=== PATIENT | female | born 1935 | race Caucasian/White ===

== ENCOUNTER 2016-07-24 09:35 | Outpatient (CLI) | payer MEDICARE, MEDICAID ==
[~2016-07-24 09:35] MED LIST: ACET-73 PO; ACET650T10 PO; ALLA266C2 TP; AMIN887L7 PO; ASCO500T9 PO; ASPI-991 PO; ATOR10TA PO; BISA10SU61 RC; BUSP10TA3 PO; CARV6.25 PO; CLON0.1T PO; CRAN425C PO; DOCU50LI PO; Ergocalciferol PO; FERR-58 PO; INSU100V11; INSU100V7 SQ; ISOS60TA PO; LACT10SO7 PO; MAGN2400 PO; MULT1TAB11 PO; NA P133E RC; NITR0.4T SL; NUTR1PAC14 PO; Nifedipine PO; PANT40TA2 PO; REPA1TAB PO; SENN8.6T6 PO; SITA100T PO; TRAM50TA2 PO; ZINC220C8 PO
== END 2016-07-24 23:59 ==
LOC: WOU 09:35
PROVIDERS: ATTEND Podiatrist Foot & Ankle Surgery
DX: E11.621 Type 2 diabetes mellitus with foot ulcer (principal); L97.512 Non-pressure chronic ulcer of other part of right foot with fat layer exposed; L97.412 Non-pressure chronic ulcer of right heel and midfoot with fat layer exposed; L89.612 Pressure ulcer of right heel, stage 2; L89.892 Pressure ulcer of other site, stage 2; L89.622 Pressure ulcer of left heel, stage 2; Z79.4 Long term (current) use of insulin; Z79.84 Long term (current) use of oral hypoglycemic drugs; E11.22 Type 2 diabetes mellitus with diabetic chronic kidney disease; I13.10 Hypertensive heart and chronic kidney disease without heart failure, with stage 1 through stage 4 chronic kidney disease, or unspecified chronic kidney disease; N18.9 Chronic kidney disease, unspecified; E66.9 Obesity, unspecified; Z68.27 Body mass index [BMI] 27.0-27.9, adult; E11.51 Type 2 diabetes mellitus with diabetic peripheral angiopathy without gangrene; Z99.3 Dependence on wheelchair; I25.10 Atherosclerotic heart disease of native coronary artery without angina pectoris
CPT/HCPCS: 11042; 11045; 87070 ×2; 87075 ×2; 87186; A6253; A6402

== ENCOUNTER 2016-08-01 09:37 | Outpatient (CLI) | payer MEDICARE, MEDICAID | END 2016-08-01 23:59 | disposition home or self-care (01) | LOC: WOU 09:37 | PROVIDERS: ATTEND Podiatrist Foot & Ankle Surgery | DX: L89.612 Pressure ulcer of right heel, stage 2 (principal); L89.512 Pressure ulcer of right ankle, stage 2; L89.892 Pressure ulcer of other site, stage 2; E11.621 Type 2 diabetes mellitus with foot ulcer; L97.512 Non-pressure chronic ulcer of other part of right foot with fat layer exposed; E11.42 Type 2 diabetes mellitus with diabetic polyneuropathy; Z88.0 Allergy status to penicillin; E11.69 Type 2 diabetes mellitus with other specified complication; M86.68 Other chronic osteomyelitis, other site; Z74.01 Bed confinement status; N39.0 Urinary tract infection, site not specified; B95.62 Methicillin resistant Staphylococcus aureus infection as the cause of diseases classified elsewhere; Z86.73 Personal history of transient ischemic attack (TIA), and cerebral infarction without residual deficits; I13.10 Hypertensive heart and chronic kidney disease without heart failure, with stage 1 through stage 4 chronic kidney disease, or unspecified chronic kidney disease; N18.9 Chronic kidney disease, unspecified; L89.154 Pressure ulcer of sacral region, stage 4; S51.011A Laceration without foreign body of right elbow, initial encounter; X58.XXXA Exposure to other specified factors, initial encounter; Y92.89 Other specified places as the place of occurrence of the external cause; L89.623 Pressure ulcer of left heel, stage 3; L89.613 Pressure ulcer of right heel, stage 3; Z79.4 Long term (current) use of insulin; Z79.84 Long term (current) use of oral hypoglycemic drugs | CPT/HCPCS: 11042; 11043; 11044; 11045; 11046; 87070; 87075; 87077; 87186 ×2; A6197; A6209; A6402; G0463 ==

== ENCOUNTER 2016-08-10 08:19 | Inpatient (IN) | payer MEDICARE, MEDICAID ==
[~2016-08-10] VITALS: Ht 157.5 cm; Wt 65.8 kg
[2016-08-10] VITALS (12 sets, daily range): BP systolic 101–150; BP diastolic 58–89
[2016-08-10] MEDS ORDERED: ONDANSETRON HCL/PF 4 MG/2 ML VIAL ONE (08:25)
[2016-08-10] MEDS ORDERED: ONDANSETRON HCL/PF 4 MG/2 ML VIAL IV ONE (08:30)
[2016-08-10] MEDS ORDERED: DILTIAZEM HCL 25 MG IV ONE (08:36)
[2016-08-10 08:55] LABS: BASOPHILS % (AUTO) 0.3 % (0.0-2.0); DIFF TOTAL % 100 %; EOSINOPHILS # (AUTO) 0.2 /CMM (0.0-0.7); EOSINOPHILS % (AUTO) 2.6 % (0.0-6.0); HEMATOCRIT 35 % (33-45); LYMPHOCYTES # (AUTO) 2.1 /CMM (0.8-4.8); LYMPHOCYTES % (AUTO) 24.7 % (20.0-44.0); MEAN CORPUSCULAR HEMOGLOBIN 28 PG (26.0-33.0); MEAN CORPUSCULAR HGB CONC 32 g/dl (31.0-36.0); MEAN CORPUSCULAR VOLUME 88 fL (82-100); MONOCYTES # (AUTO) 0.4 /CMM (0.1-1.30); MONOCYTES % (AUTO) 5.3 % (2.0-12.0); NEUTROPHILS # (AUTO) 5.6 /CMM (1.8-8.9); NEUTROPHILS % (AUTO) 67.1 % (43.0-81.0); PLATELET COUNT (AUTO) 264 /CMM (150-450); RED BLOOD CELL COUNT(AUTO) 3.96 MIL/uL (4.0-5.2); WHITE BLOOD COUNT (AUTO) 8.3 K/uL (4.3-11.0)
[2016-08-10] MEDS ORDERED: DIAZEPAM 5 MG/ML 2 ML DISP.SYRIN ONE (08:55)
[2016-08-10] MEDS ORDERED: IV SET PRIMARY PUMP SET 1 EA INFUS.SET MC ONE ×4 (08:56→15:38)
[2016-08-10] MEDS ORDERED: IV NS 0.9% 500 ML IV ONE (08:56)
[2016-08-10] MEDS ORDERED: DIAZEPAM 5 MG/ML 2 ML DISP.SYRIN IV ONE (09:00)
[2016-08-10] MEDS ORDERED: DILTIAZEM HCL 50 MG IV IV ONE (09:00)
[2016-08-10] MEDS ORDERED: IV NS 0.9% 500 ML BAG IV ONE (09:00)
[2016-08-10 09:08] LABS: CALCIUM, SERUM 7.9 mg/dL (8.5-10.1); CREATININE 1.1 mg/dL (0.6-1.3); POTASSIUM 4.7 mmol/L (3.5-5.1)
[2016-08-10 09:09] LABS: INR 1.23 (0.87-1.13); PROTHROMBIN TIME 13.3 SECS (9.5-12.7)
[2016-08-10 09:15] LABS: TROPONIN I 0.1 ng/mL (0.00-0.056)
[2016-08-10] MEDS ORDERED: IV NS 0.9% 250 ML IV ONE (09:16)
[2016-08-10] MEDS ORDERED: CT SWABBABLE VALVE TRANS SET 1 EA INFUS.SET MC ONE (09:16)
[2016-08-10] MEDS ORDERED: IOHEXOL-350 100 ML VIAL IV ONE (09:17)
[2016-08-10] MEDS ORDERED: MAGN400O6 PO (09:23)
[2016-08-10] MEDS ORDERED: METF500T4 PO (09:23)
[2016-08-10] MEDS ORDERED: GENT30OI2 TP (09:23)
[2016-08-10] MEDS ORDERED: ONDA4TAB5 PO (09:23)
[2016-08-10] MEDS ORDERED: AMIN30LI4 PO (09:23)
[2016-08-10] MEDS ORDERED: AMLO5TAB4 PO (09:23)
[2016-08-10] MEDS ORDERED: ATOR10TA PO (09:23)
[2016-08-10] MEDS ORDERED: GLIP5TAB13 PO (09:23)
[2016-08-10] MEDS ORDERED: DOXY-182 PO (09:23)
[2016-08-10] MEDS ORDERED: BLOO-697 IN (09:23)
[2016-08-10] MEDS ORDERED: ASPI81TA2 PO (09:23)
[2016-08-10] MEDS ORDERED: TRAM50TA2 PO (09:23)
[2016-08-10] MEDS ORDERED: DEXT15DR6 EACHEYE (09:23)
[2016-08-10] MEDS ORDERED: GUAI10SY3 PO (09:23)
[2016-08-10] MEDS ORDERED: ASPIRIN 325 MG TABLET ONE (09:25)
[2016-08-10] MEDS ORDERED: ASPIRIN 325 MG TABLET PO ONE (09:30)
[2016-08-10] MEDS ORDERED: HEPARIN INFUSION/D5W 500 ML IV ONE (10:30)
[2016-08-10] MEDS ORDERED: HEPARIN SODIUM, PORCINE 5000 UNITS/1 ML VIAL ONE ×2 (10:40→10:41)
[2016-08-10] MEDS ORDERED: Z GUARD REMEDY 2 OZ OINT TP PRN ×2 (11:00→11:30)
[2016-08-10] MEDS ORDERED: CLONIDINE HCL 0.1 MG TABLET PO PRN (11:00)
[2016-08-10] MEDS ORDERED: NITROGLYCERIN 0.4 MG/TAB BOTTLE SL PRN (11:00)
[2016-08-10] MEDS ORDERED: BISACODYL SUPP (10 MG) 10 MG/SUPP.RECT SUPP.RECT RC PRN (11:00)
[2016-08-10] MEDS ORDERED: MAGNESIUM HYDROXIDE 30 ML UDC PO PRN ×2 (11:00→11:30)
[2016-08-10] MEDS ORDERED: Medication Not On Formulary EA (Ondansetron Hcl (Zofran) 4 MG) PO PRN (11:00)
[2016-08-10] MEDS ORDERED: DEXTROSE 50%-WATER 50 ML DISP.SYRIN IV PRN (11:30)
[2016-08-10] MEDS ORDERED: ZOLPIDEM TARTRATE 5 MG TABLET PO PRN (11:30)
[2016-08-10] MEDS ORDERED: MAG HYDROX/AL HYDROX/SIMETH 30 ML UDC PO PRN (11:30)
[2016-08-10] MEDS ORDERED: *INSULIN REGULAR(HUMULIN R)HUM 100 UNIT/ML VIAL SQ PRN (11:30)
[2016-08-10] MEDS ORDERED: LIDOCAINE 1%-EPI 1:100,000 20 ML VIAL TP ONE (12:00)
[2016-08-10] MEDS ORDERED: BLOOD SUGAR DIAGNOSTIC 1 EACH STRIP IN SCH (12:00)
[2016-08-10] MEDS ORDERED: AMIODARONE 150 MG in IV D5W 100 ML IV ONE ×2 (13:00→15:00)
[2016-08-10] MEDS: BLOOD SUGAR DIAGNOSTIC 1 EACH STRIP VI SCH ×3 (13:04→22:34)
[2016-08-10] MEDS: DAKINS QUARTER STRENGTH (0.125%) 480 ML BOTTLE TOP SCH (13:15)
[2016-08-10] MEDS: POLYVINYL ALCOHOL 15 ML BOTTLE OP SCH ×2 (13:15→17:14)
[2016-08-10] MEDS: PROSOURCE / PROSTAT (PYXIS) 30 ML UDC PO SCH ×2 (13:16→17:25)
[2016-08-10] MEDS: ENOXAPARIN SODIUM 80 MG/0.8 ML DISP.SYRIN SQ SCH (13:18)
[2016-08-10] MEDS: INSULIN REGULAR, HUMAN 100 UNIT/ML 3 ML VIAL SQ PRN ×3 (13:20→22:06)
[2016-08-10 14:29] LABS: THYROID STIMULATING HORMONE 0.077 uIU/mL (0.358-3.74)
[2016-08-10] MEDS ORDERED: AMIODARONE 900 MG in IV D5W 482 ML IV PRN (15:00)
[2016-08-10] MEDS ORDERED: AMIODARONE 900 MG in IV D5W 500 ML IV PRN (15:00)
[2016-08-10] MEDS: TRAMADOL HCL 50 MG TABLET PO PRN ×2 (15:26→20:36)
[2016-08-10] MEDS: Magnesium 1GM/D5W 100ML PREMIX 100 ML IV SCH ×4 (15:52→18:47)
[2016-08-10] MEDS: ONDANSETRON HCL/PF 4 MG/2 ML VIAL IVP PRN (15:52)
[2016-08-10 15:53] LABS: ALBUMIN 2.2 g/dL (3.4-5.0); BILIRUBIN,DIRECT 0.2 mg/dL (0.0-0.2); BILIRUBIN,TOTAL 0.5 mg/dL (0.2-1.0); INDIRECT BILIRUBIN 0.3 mg/dL (0.0-1.1)
[2016-08-10] MEDS: ATORVASTATIN 10 MG TABLET PO SCH (21:16)
[2016-08-10] MEDS: DOCUSATE SODIUM LIQ 100 MG/10 ML UDC PO SCH (21:17)
[2016-08-10] MEDS: INSULIN DETEMIR 100 UNIT/ML CARTRIDGE SQ SCH (21:55)
[2016-08-11] VITALS (28 sets, daily range): BP systolic 72–136; BP diastolic 32–85
[2016-08-11] MEDS ORDERED: IV NS 0.9% 1,000 ML BAG IV PRN (00:30)
[2016-08-11] MEDS ORDERED: IV SET PRIMARY PUMP SET 1 EA INFUS.SET MC ONE ×3 (00:34→13:08)
[2016-08-11] MEDS: ENOXAPARIN SODIUM 80 MG/0.8 ML DISP.SYRIN SQ SCH ×2 (00:47→12:04)
[2016-08-11 05:14] LABS: BASOPHILS % (AUTO) 0.3 % (0.0-2.0); DIFF TOTAL % 100 %; EOSINOPHILS # (AUTO) 0.2 /CMM (0.0-0.7); EOSINOPHILS % (AUTO) 2.1 % (0.0-6.0); HEMATOCRIT 34 % (33-45); LYMPHOCYTES # (AUTO) 3.4 /CMM (0.8-4.8); LYMPHOCYTES % (AUTO) 36.5 % (20.0-44.0); MEAN CORPUSCULAR HEMOGLOBIN 28 PG (26.0-33.0); MEAN CORPUSCULAR HGB CONC 32 g/dl (31.0-36.0); MEAN CORPUSCULAR VOLUME 87 fL (82-100); MONOCYTES # (AUTO) 0.5 /CMM (0.1-1.30); MONOCYTES % (AUTO) 5.3 % (2.0-12.0); NEUTROPHILS # (AUTO) 5.2 /CMM (1.8-8.9); NEUTROPHILS % (AUTO) 55.8 % (43.0-81.0); PLATELET COUNT (AUTO) 292 /CMM (150-450); WHITE BLOOD COUNT (AUTO) 9.3 K/uL (4.3-11.0)
[2016-08-11 05:28] LABS: RETICULOCYTE COUNT 2.1 % (0.6-2.5)
[2016-08-11 05:35] LABS: CREATININE 0.8 mg/dL (0.6-1.3); PHOSPHORUS 3.8 mg/dL (2.5-4.9); POTASSIUM 3.9 mmol/L (3.5-5.1)
[2016-08-11 05:38] LABS: THYROID STIMULATING HORMONE 0.063 uIU/mL (0.358-3.74)
[2016-08-11] MEDS ORDERED: IV D5/ 0.9% NACL 1,000 ML IV PRN (07:30)
[2016-08-11] MEDS ORDERED: FENTANYL PF 100MCG/2ML AMPUL ONE (08:51)
[2016-08-11] MEDS ORDERED: MIDAZOLAM HCL 2 MG/2ML VIAL ONE (08:52)
[2016-08-11] MEDS ORDERED: IOHEXOL 50 ML IV ONE (08:56)
[2016-08-11] MEDS ORDERED: LIDOCAINE 1% INJ 50 ML MDV IJ ONE (08:57)
[2016-08-11] MEDS ORDERED: AMLODIPINE BESYLATE 5 MG TABLET PO SCH (09:00)
[2016-08-11] MEDS ORDERED: CLINDAMYCIN 900 MG/6 ML VIAL ONE (09:07)
[2016-08-11] MEDS: BLOOD SUGAR DIAGNOSTIC 1 EACH STRIP VI SCH (09:29)
[2016-08-11 10:29] LABS: BASOPHILS % (AUTO) 0.4 % (0.0-2.0); DIFF TOTAL % 100 %; EOSINOPHILS % (AUTO) 0.5 % (0.0-6.0); HEMATOCRIT 36 % (33-45); HEMOGLOBIN 11.6 g/dL (11.5-14.8); LYMPHOCYTES # (AUTO) 2.2 /CMM (0.8-4.8); LYMPHOCYTES % (AUTO) 28.3 % (20.0-44.0); MEAN CORPUSCULAR HEMOGLOBIN 28 PG (26.0-33.0); MEAN CORPUSCULAR HGB CONC 32 g/dl (31.0-36.0); MEAN CORPUSCULAR VOLUME 87 fL (82-100); MONOCYTES # (AUTO) 0.3 /CMM (0.1-1.30); MONOCYTES % (AUTO) 4.1 % (2.0-12.0); NEUTROPHILS # (AUTO) 5.3 /CMM (1.8-8.9); NEUTROPHILS % (AUTO) 66.7 % (43.0-81.0); PLATELET COUNT (AUTO) 251 /CMM (150-450); RED BLOOD CELL COUNT(AUTO) 4.14 MIL/uL (4.0-5.2); WHITE BLOOD COUNT (AUTO) 7.9 K/uL (4.3-11.0)
[2016-08-11] MEDS: DEXTROSE 50%-WATER 50 ML DISP.SYRIN IV PRN (10:32)
[2016-08-11] MEDS: DAKINS QUARTER STRENGTH (0.125%) 480 ML BOTTLE TOP SCH (10:33)
[2016-08-11] MEDS: POLYVINYL ALCOHOL 15 ML BOTTLE OP SCH ×3 (10:33→16:11)
[2016-08-11 10:43] LABS: CALCIUM, SERUM 7.8 mg/dL (8.5-10.1); CREATININE 0.8 mg/dL (0.6-1.3); POTASSIUM 4.1 mmol/L (3.5-5.1)
[2016-08-11] MEDS: TRAMADOL HCL 50 MG TABLET PO SCH (11:28)
[2016-08-11] MEDS: ASPIRIN 81 MG TAB.CHEW PO SCH (11:28)
[2016-08-11] MEDS: PROSOURCE / PROSTAT (PYXIS) 30 ML UDC PO SCH ×3 (11:29→16:10)
[2016-08-11] MEDS: ZINC SULFATE 220 MG CAPSULE PO SCH (11:29)
[2016-08-11] MEDS: MULTIVITAMINS W-MINERALS 1 TAB TABLET PO SCH (11:29)
[2016-08-11] MEDS: PANTOPRAZOLE 40 MG TABLET.DR PO SCH (11:29)
[2016-08-11] MEDS: ASCORBIC ACID 500 MG TABLET PO SCH (11:29)
[2016-08-11] MEDS: CARVEDILOL 12.5 MG TABLET PO SCH ×2 (11:31→20:21)
[2016-08-11] MEDS: BLOOD SUGAR DIAGNOSTIC 1 EACH STRIP IN SCH ×3 (11:56→23:41)
[2016-08-11] MEDS: INSULIN REGULAR, HUMAN 100 UNIT/ML 3 ML VIAL SQ PRN ×2 (12:03→23:31)
[2016-08-11] MEDS ORDERED: IV NS 0.9% 500 ML IV ONE (13:30)
[2016-08-11] MEDS: TRAMADOL HCL 50 MG TABLET PO PRN ×2 (17:34→20:18)
[2016-08-11] MEDS: ATORVASTATIN 10 MG TABLET PO SCH (21:38)
[2016-08-11] MEDS: DOCUSATE SODIUM LIQ 100 MG/10 ML UDC PO SCH (21:40)
[2016-08-11] MEDS: INSULIN DETEMIR 100 UNIT/ML CARTRIDGE SQ SCH (23:34)
[2016-08-12] VITALS (22 sets, daily range): BP systolic 89–138; BP diastolic 39–84
[2016-08-12] MEDS: ENOXAPARIN SODIUM 80 MG/0.8 ML DISP.SYRIN SQ SCH ×2 (00:46→12:54)
[2016-08-12 04:53] LABS: BASOPHILS % (AUTO) 0.6 % (0.0-2.0); DIFF TOTAL % 100 %; EOSINOPHILS # (AUTO) 0.2 /CMM (0.0-0.7); EOSINOPHILS % (AUTO) 2.2 % (0.0-6.0); HEMATOCRIT 31 % (33-45); HEMOGLOBIN 10.1 g/dL (11.5-14.8); LYMPHOCYTES # (AUTO) 2.1 /CMM (0.8-4.8); LYMPHOCYTES % (AUTO) 29.5 % (20.0-44.0); MEAN CORPUSCULAR HEMOGLOBIN 28 PG (26.0-33.0); MEAN CORPUSCULAR HGB CONC 32 g/dl (31.0-36.0); MEAN CORPUSCULAR VOLUME 87 fL (82-100); MONOCYTES # (AUTO) 0.4 /CMM (0.1-1.30); MONOCYTES % (AUTO) 6.1 % (2.0-12.0); NEUTROPHILS # (AUTO) 4.5 /CMM (1.8-8.9); NEUTROPHILS % (AUTO) 61.6 % (43.0-81.0); PLATELET COUNT (AUTO) 268 /CMM (150-450); RED BLOOD CELL COUNT(AUTO) 3.59 MIL/uL (4.0-5.2); WHITE BLOOD COUNT (AUTO) 7.3 K/uL (4.3-11.0)
[2016-08-12 05:08] LABS: CREATININE 0.8 mg/dL (0.6-1.3); POTASSIUM 4.9 mmol/L (3.5-5.1)
[2016-08-12] MEDS: DEXTROSE 50%-WATER 50 ML DISP.SYRIN IV PRN (05:24)
[2016-08-12] MEDS: TRAMADOL HCL 50 MG TABLET PO PRN (06:16)
[2016-08-12] MEDS: DAKINS QUARTER STRENGTH (0.125%) 480 ML BOTTLE TOP SCH (06:30)
[2016-08-12] MEDS: BLOOD SUGAR DIAGNOSTIC 1 EACH STRIP IN SCH ×4 (07:29→22:03)
[2016-08-12] MEDS: ASPIRIN 81 MG TAB.CHEW PO SCH (07:54)
[2016-08-12] MEDS: MULTIVITAMINS W-MINERALS 1 TAB TABLET PO SCH (07:54)
[2016-08-12] MEDS: ZINC SULFATE 220 MG CAPSULE PO SCH (07:54)
[2016-08-12] MEDS: ACETAMINOPHEN 325 MG TABLET PO PRN (07:54)
[2016-08-12] MEDS: ASCORBIC ACID 500 MG TABLET PO SCH (07:54)
[2016-08-12] MEDS: POLYVINYL ALCOHOL 15 ML BOTTLE OP SCH ×3 (07:55→17:05)
[2016-08-12] MEDS: PROSOURCE / PROSTAT (PYXIS) 30 ML UDC PO SCH ×3 (07:55→17:21)
[2016-08-12] MEDS: PANTOPRAZOLE 40 MG TABLET.DR PO SCH (07:55)
[2016-08-12] MEDS: CARVEDILOL 12.5 MG TABLET PO SCH ×2 (09:00→22:03)
[2016-08-12] MEDS ORDERED: IV NS 0.9% 1,000 ML IV PRN (10:30)
[2016-08-12] MEDS: CADEXOMER IODINE 40 GM TUBE TP SCH (10:35)
[2016-08-12] MEDS ORDERED: IV SET PRIMARY PUMP SET 1 EA INFUS.SET MC ONE (11:10)
[2016-08-12] MEDS: TRAMADOL HCL 50 MG TABLET PO SCH (11:14)
[2016-08-12] MEDS: INSULIN REGULAR, HUMAN 100 UNIT/ML 3 ML VIAL SQ PRN (11:50)
[2016-08-12] MEDS: SOD FERRIC GLUC 125 MG in IV NS 0.9% 100 ML IV SCH (14:33)
[2016-08-12] MEDS ORDERED: SECONDARY IV SET 1 EA INFUS.SET MC ONE (14:35)
[2016-08-12] MEDS ORDERED: DIGOXIN 0.125 MG TABLET PO SCH (17:30)
[2016-08-12] MEDS ORDERED: CARVEDILOL 12.5 MG TABLET PO SCH (21:00)
[2016-08-12] MEDS ORDERED: DOCUSATE SODIUM LIQ 100 MG/10 ML UDC ONE (21:46)
[2016-08-12] MEDS: ATORVASTATIN 10 MG TABLET PO SCH (21:59)
[2016-08-12] MEDS: INSULIN DETEMIR 100 UNIT/ML CARTRIDGE SQ SCH (22:00)
[2016-08-12] MEDS: DOCUSATE SODIUM LIQ 100 MG/10 ML UDC PO SCH (22:02)
[2016-08-13] VITALS: BP 125/59
[2016-08-13] MEDS: ENOXAPARIN SODIUM 80 MG/0.8 ML DISP.SYRIN SQ SCH ×2 (00:42→14:34)
[2016-08-13 04:00] VITALS: BP_SYST 106; BP_SYST 117; BP_DIAS 49; BP_DIAS 52
[2016-08-13 06:32] LABS: BASOPHILS % (AUTO) 0.4 % (0.0-2.0); DIFF TOTAL % 100 %; EOSINOPHILS # (AUTO) 0.2 /CMM (0.0-0.7); EOSINOPHILS % (AUTO) 2.7 % (0.0-6.0); HEMATOCRIT 33 % (33-45); HEMOGLOBIN 10.8 g/dL (11.5-14.8); LYMPHOCYTES # (AUTO) 2.1 /CMM (0.8-4.8); LYMPHOCYTES % (AUTO) 30.4 % (20.0-44.0); MEAN CORPUSCULAR HEMOGLOBIN 28 PG (26.0-33.0); MEAN CORPUSCULAR HGB CONC 32 g/dl (31.0-36.0); MEAN CORPUSCULAR VOLUME 87 fL (82-100); MONOCYTES # (AUTO) 0.3 /CMM (0.1-1.30); MONOCYTES % (AUTO) 4.5 % (2.0-12.0); NEUTROPHILS # (AUTO) 4.3 /CMM (1.8-8.9); PLATELET COUNT (AUTO) 303 /CMM (150-450); RED BLOOD CELL COUNT(AUTO) 3.83 MIL/uL (4.0-5.2); WHITE BLOOD COUNT (AUTO) 6.9 K/uL (4.3-11.0)
[2016-08-13 06:48] LABS: CALCIUM, SERUM 8.3 mg/dL (8.5-10.1); CREATININE 0.8 mg/dL (0.6-1.3); PHOSPHORUS 3.5 mg/dL (2.5-4.9); POTASSIUM 5.2 mmol/L (3.5-5.1)
[2016-08-13] MEDS: BLOOD SUGAR DIAGNOSTIC 1 EACH STRIP IN SCH ×4 (07:30→21:18)
[2016-08-13 08:00] VITALS: BP 136/82
[2016-08-13] MEDS: MULTIVITAMINS W-MINERALS 1 TAB TABLET PO SCH (09:21)
[2016-08-13] MEDS: TRAMADOL HCL 50 MG TABLET PO SCH (09:21)
[2016-08-13] MEDS: PANTOPRAZOLE 40 MG TABLET.DR PO SCH (09:22)
[2016-08-13] MEDS: ASPIRIN 81 MG TAB.CHEW PO SCH (09:22)
[2016-08-13] MEDS: PROSOURCE / PROSTAT (PYXIS) 30 ML UDC PO SCH ×3 (09:22→17:33)
[2016-08-13] MEDS: CARVEDILOL 12.5 MG TABLET PO SCH (09:23)
[2016-08-13] MEDS: ZINC SULFATE 220 MG CAPSULE PO SCH (09:24)
[2016-08-13] MEDS: POLYVINYL ALCOHOL 15 ML BOTTLE OP SCH ×3 (09:24→17:33)
[2016-08-13] MEDS: ACETAMINOPHEN 325 MG TABLET PO PRN (09:24)
[2016-08-13] MEDS: ASCORBIC ACID 500 MG TABLET PO SCH (09:24)
[2016-08-13] MEDS: DAKINS QUARTER STRENGTH (0.125%) 480 ML BOTTLE TOP SCH (09:26)
[2016-08-13] MEDS: CADEXOMER IODINE 40 GM TUBE TP SCH (09:26)
[2016-08-13] MEDS ORDERED: IV SET PRIMARY PUMP SET 1 EA INFUS.SET MC ONE ×3 (11:22→22:02)
[2016-08-13] MEDS: Magnesium 1GM/D5W 100ML PREMIX 100 ML IV SCH ×8 (11:27→20:40)
[2016-08-13] MEDS ORDERED: SODIUM POLYSTYRENE SULFONATE 15 G/60 ML BOTTLE PO ONE (11:30)
[2016-08-13 12:00] VITALS: BP 129/54
[2016-08-13] MEDS: INSULIN REGULAR, HUMAN 100 UNIT/ML 3 ML VIAL SQ PRN ×3 (12:33→21:28)
[2016-08-13] MEDS ORDERED: Magnesium 1GM/D5W 100ML PREMIX 100 ML IV SCH ×2 (14:30→17:30)
[2016-08-13] MEDS: SOD FERRIC GLUC 125 MG in IV NS 0.9% 100 ML IV SCH (15:39)
[2016-08-13 16:00] VITALS: BP 146/48
[2016-08-13] MEDS ORDERED: FEE PK DOSING 1 MIN EA MC ONE (19:52)
[2016-08-13 20:00] VITALS: BP 118/56
[2016-08-13] MEDS: ONDANSETRON HCL/PF 4 MG/2 ML VIAL IVP PRN (21:12)
[2016-08-13] MEDS: HYDROCODONE/APAP 5/325MG 1 EACH TABLET PO PRN (21:12)
[2016-08-13] MEDS: ATORVASTATIN 10 MG TABLET PO SCH (21:13)
[2016-08-13] MEDS: DOCUSATE SODIUM LIQ 100 MG/10 ML UDC PO SCH (21:13)
[2016-08-13] MEDS: METOPROLOL TARTRATE 25 MG TABLET PO SCH (21:18)
[2016-08-13] MEDS: INSULIN DETEMIR 100 UNIT/ML CARTRIDGE SQ SCH (21:47)
[2016-08-13] MEDS ORDERED: SECONDARY IV SET 1 EA INFUS.SET MC ONE (22:02)
[2016-08-13] MEDS ORDERED: IV NS 0.9% 250 ML IV ONE (22:02)
[2016-08-13] MEDS: VANCOMYCIN 1 GM in IV D5W 250 ML IV SCH (22:15)
[2016-08-13] MEDS: MEROPENEM 500 MG in IV NS 0.9% 50 ML IV SCH (22:47)
[2016-08-14] VITALS (7 sets, daily range): BP systolic 96–166; BP diastolic 18–91
[2016-08-14] MEDS: HYDROCODONE/APAP 5/325MG 1 EACH TABLET PO PRN ×3 (01:04→21:46)
[2016-08-14] MEDS: ENOXAPARIN SODIUM 80 MG/0.8 ML DISP.SYRIN SQ SCH ×2 (01:08→13:03)
[2016-08-14] MEDS: MEROPENEM 500 MG in IV NS 0.9% 50 ML IV SCH ×3 (05:31→21:42)
[2016-08-14] MEDS: BLOOD SUGAR DIAGNOSTIC 1 EACH STRIP IN SCH ×4 (06:42→21:42)
[2016-08-14 06:55] LABS: BASOPHILS % (AUTO) 0.2 % (0.0-2.0); DIFF TOTAL % 100 %; EOSINOPHILS # (AUTO) 0.2 /CMM (0.0-0.7); EOSINOPHILS % (AUTO) 1.9 % (0.0-6.0); HEMATOCRIT 31 % (33-45); HEMOGLOBIN 10.1 g/dL (11.5-14.8); LYMPHOCYTES # (AUTO) 1.1 /CMM (0.8-4.8); LYMPHOCYTES % (AUTO) 11.5 % (20.0-44.0); MEAN CORPUSCULAR HEMOGLOBIN 28 PG (26.0-33.0); MEAN CORPUSCULAR HGB CONC 32 g/dl (31.0-36.0); MEAN CORPUSCULAR VOLUME 87 fL (82-100); MONOCYTES # (AUTO) 0.3 /CMM (0.1-1.30); MONOCYTES % (AUTO) 2.9 % (2.0-12.0); NEUTROPHILS # (AUTO) 7.7 /CMM (1.8-8.9); NEUTROPHILS % (AUTO) 83.5 % (43.0-81.0); PLATELET COUNT (AUTO) 301 /CMM (150-450); RED BLOOD CELL COUNT(AUTO) 3.57 MIL/uL (4.0-5.2); WHITE BLOOD COUNT (AUTO) 9.2 K/uL (4.3-11.0)
[2016-08-14 06:59] LABS: CALCIUM, SERUM 7.9 mg/dL (8.5-10.1); CREATININE 0.9 mg/dL (0.6-1.3); POTASSIUM 3.9 mmol/L (3.5-5.1)
[2016-08-14] MEDS: TRAMADOL HCL 50 MG TABLET PO SCH ×2 (09:00→09:56)
[2016-08-14] MEDS: ZINC SULFATE 220 MG CAPSULE PO SCH (09:27)
[2016-08-14] MEDS: PANTOPRAZOLE 40 MG TABLET.DR PO SCH (09:27)
[2016-08-14] MEDS: METOPROLOL TARTRATE 25 MG TABLET PO SCH ×2 (09:27→21:43)
[2016-08-14] MEDS: MULTIVITAMINS W-MINERALS 1 TAB TABLET PO SCH (09:27)
[2016-08-14] MEDS: PROSOURCE / PROSTAT (PYXIS) 30 ML UDC PO SCH ×3 (09:27→16:05)
[2016-08-14] MEDS: CYANOCOBALAMIN 500 MCG TABLET PO SCH (09:27)
[2016-08-14] MEDS: ASCORBIC ACID 500 MG TABLET PO SCH (09:27)
[2016-08-14] MEDS: POLYVINYL ALCOHOL 15 ML BOTTLE OP SCH ×3 (09:28→16:05)
[2016-08-14] MEDS: CADEXOMER IODINE 40 GM TUBE TP SCH (09:33)
[2016-08-14] MEDS: DAKINS QUARTER STRENGTH (0.125%) 480 ML BOTTLE TOP SCH (09:34)
[2016-08-14] MEDS: VANCOMYCIN 1 GM in IV D5W 250 ML IV SCH (13:02)
[2016-08-14] MEDS: SOD FERRIC GLUC 125 MG in IV NS 0.9% 100 ML IV SCH (14:06)
[2016-08-14] MEDS ORDERED: SILVER NITRATE APPLICATOR 1 EA BOX TP ONE ×2 (16:00)
[2016-08-14] MEDS ORDERED: MORPHINE SULFATE INJ 2 MG/ML DISP.SYRIN IV ONE (16:00)
[2016-08-14] MEDS ORDERED: LIDOCAINE 1%-EPI 1:100,000 20 ML VIAL TP ONE (16:00)
[2016-08-14] MEDS: INSULIN REGULAR, HUMAN 100 UNIT/ML 3 ML VIAL SQ PRN (16:32)
[2016-08-14] MEDS ORDERED: MUPIROCIN OINT 2% 22 GM TUBE SCH (21:00)
[2016-08-14] MEDS: ATORVASTATIN 10 MG TABLET PO SCH (21:42)
[2016-08-14] MEDS: INSULIN DETEMIR 100 UNIT/ML CARTRIDGE SQ SCH (21:45)
[2016-08-15] MEDS: HYDROCODONE/APAP 5/325MG 1 EACH TABLET PO PRN ×2 (02:09→20:05)
[2016-08-15] MEDS: ENOXAPARIN SODIUM 80 MG/0.8 ML DISP.SYRIN SQ SCH ×2 (02:13→13:46)
[2016-08-15 04:00] VITALS: BP 108/49
[2016-08-15] MEDS: BLOOD SUGAR DIAGNOSTIC 1 EACH STRIP IN SCH ×4 (06:48→21:24)
[2016-08-15] MEDS: DEXTROSE 50%-WATER 50 ML DISP.SYRIN IV PRN (06:48)
[2016-08-15] MEDS: PANTOPRAZOLE 40 MG TABLET.DR PO SCH (06:49)
[2016-08-15] MEDS ORDERED: IV NS 0.9% 250 ML IV ONE (06:52)
[2016-08-15 07:42] LABS: CALCIUM, SERUM 8.1 mg/dL (8.5-10.1); CREATININE 0.8 mg/dL (0.6-1.3); POTASSIUM 3.9 mmol/L (3.5-5.1)
[2016-08-15 08:00] VITALS: BP 60/36
[2016-08-15] MEDS: METOPROLOL TARTRATE 25 MG TABLET PO SCH ×2 (08:01→21:10)
[2016-08-15] MEDS: MULTIVITAMINS W-MINERALS 1 TAB TABLET PO SCH (08:07)
[2016-08-15] MEDS: ZINC SULFATE 220 MG CAPSULE PO SCH (08:07)
[2016-08-15] MEDS: DOCUSATE SODIUM 250 MG CAPSULE PO SCH (08:07)
[2016-08-15] MEDS: CYANOCOBALAMIN 500 MCG TABLET PO SCH (08:07)
[2016-08-15] MEDS: ASCORBIC ACID 500 MG TABLET PO SCH (08:07)
[2016-08-15] MEDS: VANCOMYCIN 1 GM in IV D5W 250 ML IV SCH (08:08)
[2016-08-15] MEDS: DAKINS QUARTER STRENGTH (0.125%) 480 ML BOTTLE TOP SCH (08:08)
[2016-08-15] MEDS: PROSOURCE / PROSTAT (PYXIS) 30 ML UDC PO SCH ×4 (08:08→16:03)
[2016-08-15] MEDS: POLYVINYL ALCOHOL 15 ML BOTTLE OP SCH ×3 (08:08→16:03)
[2016-08-15] MEDS: CADEXOMER IODINE 40 GM TUBE TP SCH (08:08)
[2016-08-15] MEDS ORDERED: SECONDARY IV SET 1 EA INFUS.SET MC ONE ×3 (08:17→13:58)
[2016-08-15 09:00] VITALS: BP 120/67
[2016-08-15] MEDS: MEROPENEM 500 MG in IV NS 0.9% 50 ML IV SCH ×2 (09:42→21:24)
[2016-08-15] MEDS: TRAMADOL HCL 50 MG TABLET PO SCH (09:42)
[2016-08-15 12:00] VITALS: BP 123/54
[2016-08-15] MEDS: INSULIN REGULAR, HUMAN 100 UNIT/ML 3 ML VIAL SQ PRN ×2 (12:11→21:23)
[2016-08-15] MEDS: SOD FERRIC GLUC 125 MG in IV NS 0.9% 100 ML IV SCH (13:47)
[2016-08-15] MEDS: ONDANSETRON HCL/PF 4 MG/2 ML VIAL IVP PRN (13:55)
[2016-08-15] MEDS ORDERED: ENOXAPARIN SODIUM 80 MG/0.8 ML DISP.SYRIN SQ SCH (14:00)
[2016-08-15 16:00] VITALS: BP 117/60
[2016-08-15] MEDS: TRAMADOL HCL 50 MG TABLET PO PRN (16:30)
[2016-08-15 20:00] VITALS: BP 128/67
[2016-08-15] MEDS: ATORVASTATIN 10 MG TABLET PO SCH (21:10)
[2016-08-15] MEDS: INSULIN DETEMIR 100 UNIT/ML CARTRIDGE SQ SCH (21:11)
[2016-08-16] VITALS: BP 96/44
[2016-08-16] MEDS: HYDROCODONE/APAP 5/325MG 1 EACH TABLET PO PRN ×2 (01:57→21:34)
[2016-08-16] MEDS: VANCOMYCIN 1 GM in IV D5W 250 ML IV SCH (02:00)
[2016-08-16] MEDS: ENOXAPARIN SODIUM 80 MG/0.8 ML DISP.SYRIN SQ SCH ×2 (02:00→14:02)
[2016-08-16 04:00] VITALS: BP 110/51
[2016-08-16] MEDS: BLOOD SUGAR DIAGNOSTIC 1 EACH STRIP IN SCH ×4 (06:38→21:19)
[2016-08-16 06:40] LABS: CALCIUM, SERUM 8.6 mg/dL (8.5-10.1); CREATININE 0.8 mg/dL (0.6-1.3); POTASSIUM 4.9 mmol/L (3.5-5.1)
[2016-08-16 07:04] LABS: BASOPHILS % (AUTO) 0.4 % (0.0-2.0); DIFF TOTAL % 100 %; EOSINOPHILS # (AUTO) 0.1 /CMM (0.0-0.7); EOSINOPHILS % (AUTO) 1.3 % (0.0-6.0); HEMATOCRIT 35 % (33-45); HEMOGLOBIN 11.1 g/dL (11.5-14.8); LYMPHOCYTES # (AUTO) 4.8 /CMM (0.8-4.8); LYMPHOCYTES % (AUTO) 64.3 % (20.0-44.0); MEAN CORPUSCULAR HEMOGLOBIN 28 PG (26.0-33.0); MEAN CORPUSCULAR HGB CONC 32 g/dl (31.0-36.0); MEAN CORPUSCULAR VOLUME 86 fL (82-100); MONOCYTES % (AUTO) 0.5 % (2.0-12.0); NEUTROPHILS # (AUTO) 2.5 /CMM (1.8-8.9); NEUTROPHILS % (AUTO) 33.5 % (43.0-81.0); PLATELET COUNT (AUTO) 267 /CMM (150-450); RED BLOOD CELL COUNT(AUTO) 4.01 MIL/uL (4.0-5.2); WHITE BLOOD COUNT (AUTO) 7.4 K/uL (4.3-11.0)
[2016-08-16 08:00] VITALS: BP 120/76
[2016-08-16] MEDS: DOCUSATE SODIUM 250 MG CAPSULE PO SCH (09:21)
[2016-08-16] MEDS: TRAMADOL HCL 50 MG TABLET PO SCH (09:21)
[2016-08-16] MEDS: PROSOURCE / PROSTAT (PYXIS) 30 ML UDC PO SCH ×3 (09:21→16:39)
[2016-08-16] MEDS: MEROPENEM 500 MG in IV NS 0.9% 50 ML IV SCH ×2 (09:21→21:08)
[2016-08-16] MEDS: ZINC SULFATE 220 MG CAPSULE PO SCH (09:21)
[2016-08-16] MEDS: MULTIVITAMINS W-MINERALS 1 TAB TABLET PO SCH (09:21)
[2016-08-16] MEDS: ASCORBIC ACID 500 MG TABLET PO SCH (09:21)
[2016-08-16] MEDS: PANTOPRAZOLE 40 MG TABLET.DR PO SCH (09:21)
[2016-08-16] MEDS: CYANOCOBALAMIN 500 MCG TABLET PO SCH (09:21)
[2016-08-16] MEDS: METOPROLOL TARTRATE 25 MG TABLET PO SCH ×2 (09:22→21:14)
[2016-08-16] MEDS: DAKINS QUARTER STRENGTH (0.125%) 480 ML BOTTLE TOP SCH (09:22)
[2016-08-16] MEDS: POLYVINYL ALCOHOL 15 ML BOTTLE OP SCH ×3 (09:23→17:37)
[2016-08-16] MEDS: CADEXOMER IODINE 40 GM TUBE TP SCH (09:23)
[2016-08-16] MEDS: ONDANSETRON HCL/PF 4 MG/2 ML VIAL IVP PRN ×2 (10:45→15:24)
[2016-08-16 12:00] VITALS: BP 125/62
[2016-08-16] MEDS ORDERED: SECONDARY IV SET 1 EA INFUS.SET MC ONE (12:21)
[2016-08-16] MEDS: Magnesium 1GM/D5W 100ML PREMIX 100 ML IV SCH ×2 (12:24→13:57)
[2016-08-16] MEDS: SOD FERRIC GLUC 125 MG in IV NS 0.9% 100 ML IV SCH ×2 (14:00→14:14)
[2016-08-16 16:00] VITALS: BP 123/68
[2016-08-16 20:00] VITALS: BP 114/54
[2016-08-16] MEDS ORDERED: VANCOMYCIN 1 GM in IV D5W 250 ML IV SCH (20:00)
[2016-08-16] MEDS: ATORVASTATIN 10 MG TABLET PO SCH (21:13)
[2016-08-16] MEDS: INSULIN REGULAR, HUMAN 100 UNIT/ML 3 ML VIAL SQ PRN (21:20)
[2016-08-16] MEDS: INSULIN DETEMIR 100 UNIT/ML CARTRIDGE SQ SCH (21:20)
[2016-08-17] VITALS: BP 98/47
[2016-08-17] MEDS: ENOXAPARIN SODIUM 80 MG/0.8 ML DISP.SYRIN SQ SCH ×2 (01:48→14:34)
[2016-08-17 04:00] VITALS: BP 111/54
[2016-08-17] MEDS ORDERED: IV NS 0.9% 250 ML IV ONE (06:15)
[2016-08-17] MEDS: BLOOD SUGAR DIAGNOSTIC 1 EACH STRIP IN SCH ×4 (06:40→21:15)
[2016-08-17] MEDS: DEXTROSE 50%-WATER 50 ML DISP.SYRIN IV PRN (06:41)
[2016-08-17 06:47] LABS: CALCIUM, SERUM 8.9 mg/dL (8.5-10.1); CREATININE 0.8 mg/dL (0.6-1.3)
[2016-08-17 08:00] VITALS: BP 125/64
[2016-08-17] MEDS: ASCORBIC ACID 500 MG TABLET PO SCH (08:15)
[2016-08-17] MEDS: MULTIVITAMINS W-MINERALS 1 TAB TABLET PO SCH (08:15)
[2016-08-17] MEDS: ZINC SULFATE 220 MG CAPSULE PO SCH (08:15)
[2016-08-17] MEDS: CYANOCOBALAMIN 500 MCG TABLET PO SCH (08:15)
[2016-08-17] MEDS: DOCUSATE SODIUM 250 MG CAPSULE PO SCH (08:15)
[2016-08-17] MEDS: MEROPENEM 500 MG in IV NS 0.9% 50 ML IV SCH (08:15)
[2016-08-17] MEDS: PANTOPRAZOLE 40 MG TABLET.DR PO SCH (08:15)
[2016-08-17] MEDS: TRAMADOL HCL 50 MG TABLET PO SCH (08:16)
[2016-08-17] MEDS: METOPROLOL TARTRATE 25 MG TABLET PO SCH ×2 (08:16→21:15)
[2016-08-17] MEDS: POLYVINYL ALCOHOL 15 ML BOTTLE OP SCH ×3 (08:17→17:24)
[2016-08-17] MEDS: PROSOURCE / PROSTAT (PYXIS) 30 ML UDC PO SCH ×3 (08:18→16:52)
[2016-08-17] MEDS: CADEXOMER IODINE 40 GM TUBE TP SCH (08:19)
[2016-08-17] MEDS: DAKINS QUARTER STRENGTH (0.125%) 480 ML BOTTLE TOP SCH (09:07)
[2016-08-17] MEDS: ONDANSETRON HCL/PF 4 MG/2 ML VIAL IVP PRN (09:09)
[2016-08-17 12:00] VITALS: BP 99/47
[2016-08-17] MEDS: INSULIN REGULAR, HUMAN 100 UNIT/ML 3 ML VIAL SQ PRN ×3 (12:15→21:26)
[2016-08-17 16:00] VITALS: BP 122/62
[2016-08-17] MEDS: HYDROCODONE/APAP 5/325MG 1 EACH TABLET PO PRN (17:04)
[2016-08-17] MEDS ORDERED: APIX5TAB PO (17:22)
[2016-08-17 20:00] VITALS: BP 111/51
[2016-08-17] MEDS ORDERED: VANCOMYCIN 1 GM in IV D5W 250 ML IV SCH (20:00)
[2016-08-17] MEDS: CEFEPIME 1 GM in IV D5W 50 ML IV SCH (21:15)
[2016-08-17] MEDS: ATORVASTATIN 10 MG TABLET PO SCH (21:24)
[2016-08-17] MEDS: INSULIN DETEMIR 100 UNIT/ML CARTRIDGE SQ SCH (21:25)
[2016-08-17] MEDS: VANCOMYCIN 1 GM in IV D5W 250 ML IV SCH (23:41)
[2016-08-18] VITALS: BP 106/70
[2016-08-18] MEDS: ENOXAPARIN SODIUM 80 MG/0.8 ML DISP.SYRIN SQ SCH ×2 (01:02→13:31)
[2016-08-18] MEDS: TRAMADOL HCL 50 MG TABLET PO PRN ×2 (01:06→06:48)
[2016-08-18 04:00] VITALS: BP 128/70
[2016-08-18] MEDS: PANTOPRAZOLE 40 MG TABLET.DR PO SCH (06:48)
[2016-08-18] MEDS: BLOOD SUGAR DIAGNOSTIC 1 EACH STRIP IN SCH ×4 (06:49→22:06)
[2016-08-18 06:52] LABS: CALCIUM, SERUM 8.3 mg/dL (8.5-10.1); CREATININE 0.8 mg/dL (0.6-1.3); POTASSIUM 4.8 mmol/L (3.5-5.1)
[2016-08-18 08:00] VITALS: BP 119/63
[2016-08-18] MEDS ORDERED: SECONDARY IV SET 1 EA INFUS.SET MC ONE (09:05)
[2016-08-18] MEDS: CEFEPIME 1 GM in IV D5W 50 ML IV SCH ×2 (09:08→21:51)
[2016-08-18] MEDS: DOCUSATE SODIUM 250 MG CAPSULE PO SCH (09:08)
[2016-08-18] MEDS: MULTIVITAMINS W-MINERALS 1 TAB TABLET PO SCH (09:09)
[2016-08-18] MEDS: PROSOURCE / PROSTAT (PYXIS) 30 ML UDC PO SCH ×3 (09:09→18:53)
[2016-08-18] MEDS: METOPROLOL TARTRATE 25 MG TABLET PO SCH ×2 (09:09→21:52)
[2016-08-18] MEDS: CYANOCOBALAMIN 500 MCG TABLET PO SCH (09:11)
[2016-08-18] MEDS: TRAMADOL HCL 50 MG TABLET PO SCH (09:11)
[2016-08-18] MEDS: ASCORBIC ACID 500 MG TABLET PO SCH (09:11)
[2016-08-18] MEDS: ZINC SULFATE 220 MG CAPSULE PO SCH (09:12)
[2016-08-18] MEDS: POLYVINYL ALCOHOL 15 ML BOTTLE OP SCH ×3 (09:12→18:53)
[2016-08-18] MEDS: DAKINS QUARTER STRENGTH (0.125%) 480 ML BOTTLE TOP SCH (09:13)
[2016-08-18] MEDS: CADEXOMER IODINE 40 GM TUBE TP SCH (09:14)
[2016-08-18 12:00] VITALS: BP 116/75
[2016-08-18] MEDS: ONDANSETRON HCL/PF 4 MG/2 ML VIAL IVP PRN (13:07)
[2016-08-18] MEDS: INSULIN REGULAR, HUMAN 100 UNIT/ML 3 ML VIAL SQ PRN ×3 (13:13→22:08)
[2016-08-18 16:00] VITALS: BP 118/63
[2016-08-18 20:00] VITALS: BP 100/48
[2016-08-18] MEDS: ATORVASTATIN 10 MG TABLET PO SCH (21:52)
[2016-08-18] MEDS: INSULIN DETEMIR 100 UNIT/ML CARTRIDGE SQ SCH (22:06)
[2016-08-19] VITALS: BP 124/58
[2016-08-19] MEDS: ENOXAPARIN SODIUM 80 MG/0.8 ML DISP.SYRIN SQ SCH (01:12)
[2016-08-19 04:00] VITALS: BP 122/59
[2016-08-19] MEDS ORDERED: diphenhydrAMINE HCL 25 MG CAPSULE ONE (05:01)
[2016-08-19] MEDS ORDERED: diphenhydrAMINE HCL 25 MG CAPSULE PO PRN (05:30)
[2016-08-19 06:37] LABS: CALCIUM, SERUM 8.4 mg/dL (8.5-10.1); CREATININE 0.7 mg/dL (0.6-1.3); POTASSIUM 4.9 mmol/L (3.5-5.1)
[2016-08-19 08:00] VITALS: BP 107/56
[2016-08-19] MEDS: PANTOPRAZOLE 40 MG TABLET.DR PO SCH (08:39)
[2016-08-19] MEDS: BLOOD SUGAR DIAGNOSTIC 1 EACH STRIP IN SCH ×2 (08:39→12:25)
[2016-08-19] MEDS: MULTIVITAMINS W-MINERALS 1 TAB TABLET PO SCH (08:39)
[2016-08-19] MEDS: PROSOURCE / PROSTAT (PYXIS) 30 ML UDC PO SCH ×2 (08:39→13:00)
[2016-08-19] MEDS: ZINC SULFATE 220 MG CAPSULE PO SCH (08:39)
[2016-08-19] MEDS: DOCUSATE SODIUM 250 MG CAPSULE PO SCH (08:39)
[2016-08-19] MEDS: CYANOCOBALAMIN 500 MCG TABLET PO SCH (08:39)
[2016-08-19] MEDS: ASCORBIC ACID 500 MG TABLET PO SCH (08:40)
[2016-08-19] MEDS: METOPROLOL TARTRATE 25 MG TABLET PO SCH (08:40)
[2016-08-19] MEDS: DAKINS QUARTER STRENGTH (0.125%) 480 ML BOTTLE TOP SCH (08:41)
[2016-08-19] MEDS: POLYVINYL ALCOHOL 15 ML BOTTLE OP SCH ×2 (08:41→13:00)
[2016-08-19] MEDS: CADEXOMER IODINE 40 GM TUBE TP SCH (08:41)
[2016-08-19] MEDS: TRAMADOL HCL 50 MG TABLET PO SCH (08:41)
[2016-08-19] MEDS: CEFEPIME 1 GM in IV D5W 50 ML IV SCH (10:20)
[2016-08-19 12:00] VITALS: BP 116/50
[2016-08-19] MEDS: VANCOMYCIN 1 GM in IV D5W 250 ML IV SCH (12:26)
[2016-08-19] MEDS ORDERED: ENOXAPARIN SODIUM 80 MG/0.8 ML DISP.SYRIN SQ SCH (14:00)
[2016-08-21 13:12] LABS: *SPE ALBUMIN 2.4 g/dL (2.9-4.4)
== END 2016-08-19 15:49 | DRG 166 ==
LOC: ER 08:21 → ICU 11:19 → TELE1 08-12 18:24
PROVIDERS: ADMIT Student in an Organized Health Care Education/Training Program; ATTEND Student in an Organized Health Care Education/Training Program
PROC: 06H03DZ Insertion of Intraluminal Device into Inferior Vena Cava, Percutaneous Approach (ICD-10-PCS; principal; 2016-08-11 11:00)
PROC: 0QB10ZZ Excision of Sacrum, Open Approach (ICD-10-PCS; 2016-08-14)
PROC: 0JBR0ZZ Excision of Left Foot Subcutaneous Tissue and Fascia, Open Approach (ICD-10-PCS; 2016-08-15)
PROC: 0JBQ0ZZ Excision of Right Foot Subcutaneous Tissue and Fascia, Open Approach (ICD-10-PCS; 2016-08-15)
PROC: 0KBS0ZZ Excision of Right Lower Leg Muscle, Open Approach (ICD-10-PCS; 2016-08-15)
DX: I26.99 Other pulmonary embolism without acute cor pulmonale (principal); J96.00 Acute respiratory failure, unspecified whether with hypoxia or hypercapnia; N17.0 Acute kidney failure with tubular necrosis; L89.623 Pressure ulcer of left heel, stage 3; L89.613 Pressure ulcer of right heel, stage 3; L89.894 Pressure ulcer of other site, stage 4; L89.154 Pressure ulcer of sacral region, stage 4; J96.01 Acute respiratory failure with hypoxia; I21.4 Non-ST elevation (NSTEMI) myocardial infarction; I50.33 Acute on chronic diastolic (congestive) heart failure; I82.412 Acute embolism and thrombosis of left femoral vein; I82.432 Acute embolism and thrombosis of left popliteal vein; I13.0 Hypertensive heart and chronic kidney disease with heart failure and stage 1 through stage 4 chronic kidney disease, or unspecified chronic kidney disease; I82.402 Acute embolism and thrombosis of unspecified deep veins of left lower extremity; J90 Pleural effusion, not elsewhere classified; Z87.11 Personal history of peptic ulcer disease; I48.91 Unspecified atrial fibrillation; I25.10 Atherosclerotic heart disease of native coronary artery without angina pectoris; E11.40 Type 2 diabetes mellitus with diabetic neuropathy, unspecified; Z86.73 Personal history of transient ischemic attack (TIA), and cerebral infarction without residual deficits; N18.9 Chronic kidney disease, unspecified; E78.5 Hyperlipidemia, unspecified; Z86.718 Personal history of other venous thrombosis and embolism; E05.20 Thyrotoxicosis with toxic multinodular goiter without thyrotoxic crisis or storm; L97.519 Non-pressure chronic ulcer of other part of right foot with unspecified severity; L97.529 Non-pressure chronic ulcer of other part of left foot with unspecified severity; I27.2 Other secondary pulmonary hypertension; E83.42 Hypomagnesemia; E87.5 Hyperkalemia; R91.1 Solitary pulmonary nodule; E11.649 Type 2 diabetes mellitus with hypoglycemia without coma; E11.22 Type 2 diabetes mellitus with diabetic chronic kidney disease; E11.621 Type 2 diabetes mellitus with foot ulcer; T38.3X5A Adverse effect of insulin and oral hypoglycemic [antidiabetic] drugs, initial encounter; F17.200 Nicotine dependence, unspecified, uncomplicated; I25.2 Old myocardial infarction; M41.9 Scoliosis, unspecified; M85.80 Other specified disorders of bone density and structure, unspecified site; Z74.01 Bed confinement status
CPT/HCPCS: 36415; 71010-TC; 73590-TC; 73650-TC; 74000-TC; 80048-TC; 80061-TC; 80076-TC; 80202-TC; 82728-TC; 82746; 82962-TC; 83540-TC; 83735-TC; 83880; 84100-TC; 84155; 84165; 84436-TC; 84439-TC; 84443-TC; 84484-TC; 85025-TC; 85045-TC; 85730-TC; 87070-TC; 87081-TC; 87186-TC; 93307-TC; 93925-TC; 93970-TC; 94799-TC; A4216; A4606; A6253; A6402; A6403; C1769; C1880; J0282; J0692; J1644; J1650; J1815; J2185; J2250; J2270; J2405; J2916; J3010; J3360; J3370; J3475; J3490; J7030; J7040; J7042; J7050; J7060; Q0163; Q9967; Z7610